=== PATIENT | female | born 1995 | race Two or more races ===

== ENCOUNTER 2017-01-02 20:41 | Emergency (ER) | payer OTHER ==
[~2017-01-02] VITALS: Ht 152.4 cm; Wt 83.1 kg
[2017-01-02 21:06] VITALS: BP 125/73
[2017-01-02] MEDS ORDERED: KETOROLAC 30 MG/ML VIAL. IV ONE (22:00)
[2017-01-02] MEDS ORDERED: ONDANSETRON PF 4 MG/2 ML VIAL. IV ONE (22:00)
[2017-01-02 22:25] LABS: BILIRUBIN,URINE NEG (NEG); CLARITY,URINE CLEAR; COLOR,URINE STRAW; GLUCOSE,URINE NEG (NEG)
[2017-01-02 22:26] LABS: BACTERIA,URINE 0 /HPF (0-FEW); NITRITE,URINE NEG (NEG); RBC,URINE 0 /HPF (0-2); SQUAMOUS EPITHELIAL CELL,UR MANY /LPF; UROBILINOGEN,URINE 0.2 mg/dL (0.2 mg/dL)
[2017-01-02 22:39] LABS: BASO % 0 % (0-3); EOS # 0.2 x10^3/uL (0.0-0.7); EOS % 3 % (0-3); HEMATOCRIT 43.5 % (36.0-47.0); HEMOGLOBIN 14.3 g/dL (12.0-15.5); LYMPH # 2.4 x10^3/uL (1.0-4.8); LYMPH % 29 % (24-48); MEAN CORPUSCULAR HEMOGLOBIN 27 pg (25-35); MEAN CORPUSCULAR HGB CONC 33 g/dL (31-37); MEAN CORPUSCULAR VOLUME 83 fL (79-100); MONO # 0.6 x10^3/uL (0.0-1.1); MONO % 7 % (0-9); NEUT # 5.2 x10^3uL (1.8-7.7); NEUT % 62 % (31-73); PLATELET COUNT 321 x10^3/uL (140-400); RED BLOOD COUNT 5.22 x10^6/uL (3.50-5.40); RED CELL DISTRIBUTION WIDTH 15.9 % (11.5-14.5); WHITE BLOOD COUNT 8.5 x10^3/uL (4.0-11.0)
[2017-01-02 22:54] LABS: ALBUMIN 3.8 g/dL (3.4-5.0); ALBUMIN/GLOBULIN RATIO 0.9 (1.0-1.7); CALCIUM 9.4 mg/dL (8.5-10.1); CREATININE 0.7 mg/dL (0.6-1.0); GFR 103.7; TOTAL BILIRUBIN 0.1 mg/dL (0.2-1.0); TOTAL PROTEIN 7.9 g/dL (6.4-8.2)
[2017-01-02 22:55] LABS: POTASSIUM 3.5 mmol/L (3.5-5.1)
[2017-01-02] MEDS ORDERED: IV NORMAL SALINE 1,000ML 1,000 ML IV ONE (23:30)
--- NOTE | 2017-01-03 00:21 | PHYS DOC ---
General Chief Complaint: NAUSEA/VOMITING/DIARRHEA Stated Complaint: ABDOMINAL PAIN N/V Time Seen by MD: 21:32 Source: patient Problems: History of Present Illness Initial Comments Patient here for nausea vomiting or diarrhea. Patient says as stated earlier today. She says she's been unable to tolerate any by mouth food or fluids today , even ice chips. She can't tell me how many times she's vomited other than "a lot." She also has diarrhea every time she vomits. There's been no blood or bilious material noted in the vomit or stool. She self Devries had no distinct fever or chills. There is no runny nose or sore throat. She's had some shortness of breath, which she attributes to her chronic asthma and which she says might of been worse with the change in weather today and going up and down stairs at work. She is not acutely short of breath at this time. She has no chest pain. She also says she has some crampy abdominal discomfort which is worse with vomiting and diarrhea and better after. There is no vaginal bleeding. She says her last period was October. She has control device and denies chance of . She has chronic vaginal discharge. There is no dysuria. She denies any focal extremity or neurologic complaints. Other than present for care tonight has been nothing done for this at home and no fractures noted increase or decrease her symptoms. There's no known sick contacts and no bad or spoiled food at home. Patient's past [place] is remarkable for asthma as well as anxiety and depression. She is on medications for this. She is a nonsmoker and occasional social user of ethanol. Allergies: Coded Allergies: Cinnamon (Verified Allergy, Severe, tongue swells, 10/29/13) Past Medical History Medical History: asthma Psychosocial History: anxiety, depression Social History Smoker: non-smoker Alcohol: occasionally Review of Systems All Other Systems: Reviewed and Negative Physical Exam General Appearance: WD/WN, no apparent distress Ear, Nose, Throat: normal ENT inspection, normal pharynx Neck: full range of motion, supple, normal inspection Respiratory: lungs clear, normal breath sounds, no respiratory distress Cardiovascular: regular rate, rhythm, no edema Gastrointestinal: soft, no organomegaly, tenderness Back: no CVA tenderness, no vertebral tenderness Extremities: non-tender, normal inspection Neurologic/Psychiatric: alert, oriented x 3 Skin: normal color, warm/dry Lymphatic: no adenopathy Comments Generally this a well-developed well-nourished female in no acute distress. Vitals are as noted. Pertinent findings on physical exam shows ears and throat to be clear. Chest is clear and cardiovascular exams unremarkable. The abdomen is soft. She diffusely mildly tender without masses, organomegaly, peritoneal findings, or focal findings. Back shows no CVA tenderness. Extremities show no rashes, cyanosis, or edema. Neurologic exam shows her to be awake alert oriented and cooperative with somewhat of a flat affect. Remainder of physical exam is clinically unremarkable. Orders, Labs, Meds Old charts note prior ER evaluations for abdominal pain of as well as for medical screening exam. Labs today are clinically unremarkable. Abdominal series films show no evidence of ileus or obstruction per the emergency physician. 0015 Patient resting comfortably in the ER. Following fluids and meds she says her nausea is gone. She's been able tolerate by mouth fluids, and she is drinking some additional Sprite now. She did say she had one episode of diarrhea after initial evaluation, but none since. She says her abdominal pain is still present but improved as well. She looks well and is no acute discomfort distress. I discussed with her the most likely diagnosis of her nausea vomiting diarrhea is probably related to either a viral illness or possible food intolerance. In any event, she looks well, she doesn't appear to be grossly dehydrated, her labs are normal, and she is able tolerate by mouth fluids, and I think she'll be able to handle this at home. We discussed home care including rest, increasing fluids with clear liquids, use of Advil or Tylenol as needed home for any fever or pain. I'm going to write prescriptions for her for Bentyl and Zofran for home. Also given her a work excuse for today and tomorrow if she is not feeling better. We did discuss the self-limited nature of these illnesses. She does voiced understanding need to follow up with primary care or return to the ER sooner as needed if worsening anyway. She looks well, no acute discomfort distress, able tolerate by mouth fluids, and okay for discharge home at this time. CHRISTEN RAMIREZ MD Jan 02, 2017 21:36
--- NOTE | 2017-01-03 08:09 | RAD ---
Abdomen, 2 views, 01/02/2017: History: Nausea, vomiting, abdominal pain An IUD is projected over the pelvis near the midline. Gas is present in large and small bowel without significant bowel distention. No free air is seen in the abdomen. A tiny lower pelvic calcifications on the left is probably a phlebolith. There is no evidence of organomegaly. The lung bases are clear. IMPRESSION: 1. An IUD is in place. 2. No acute abdominal abnormality is detected.
== END 2017-01-03 00:33 | disposition home or self-care (01) ==
LOC: ER 20:47
DX: R19.7 Diarrhea, unspecified (principal); R11.2 Nausea with vomiting, unspecified; R10.9 Unspecified abdominal pain; N89.8 Other specified noninflammatory disorders of vagina; J45.909 Unspecified asthma, uncomplicated; F41.9 Anxiety disorder, unspecified; F32.9 Major depressive disorder, single episode, unspecified; Z88.8 Allergy status to other drugs, medicaments and biological substances
CPT/HCPCS: 36415; 74020; 80053; 81001; 81025; 82150; 83690; 85027; 96361; 96374; 96375; 99285; J1885; J2405; J7030

== ENCOUNTER 2017-03-25 17:19 | Emergency (ER) | payer OTHER ==
[~2017-03-25] VITALS: Ht 152.4 cm; Wt 83.1 kg
[2017-03-25] MEDS ORDERED: IV NORMAL SALINE 1,000ML 1,000 ML IV SCH (18:15)
[2017-03-25] MEDS ORDERED: ONDANSETRON PF 4 MG/2 ML VIAL. IV ONE ×2 (18:30→20:15)
[2017-03-25 18:31] LABS: BASO # 0.1 x10^3/uL (0.0-0.2); BASO % 1 % (0-3); EOS # 0.6 x10^3/uL (0.0-0.7); EOS % 7 % (0-3); HEMATOCRIT 44.7 % (36.0-47.0); HEMOGLOBIN 15.2 g/dL (12.0-15.5); LYMPH % 23 % (24-48); MEAN CORPUSCULAR HEMOGLOBIN 29 pg (25-35); MEAN CORPUSCULAR HGB CONC 34 g/dL (31-37); MEAN CORPUSCULAR VOLUME 85 fL (79-100); MONO # 0.5 x10^3/uL (0.0-1.1); MONO % 5 % (0-9); NEUT # 5.7 x10^3uL (1.8-7.7); NEUT % 65 % (31-73); PLATELET COUNT 254 x10^3/uL (140-400); RED BLOOD COUNT 5.24 x10^6/uL (3.50-5.40); RED CELL DISTRIBUTION WIDTH 15.3 % (11.5-14.5); WHITE BLOOD COUNT 8.9 x10^3/uL (4.0-11.0)
[2017-03-25 18:39] LABS: BILIRUBIN,URINE NEG (NEG); CLARITY,URINE CLEAR; COLOR,URINE YELLOW; GLUCOSE,URINE NEG (NEG); NITRITE,URINE NEG (NEG); RBC,URINE 0 /HPF (0-2); UROBILINOGEN,URINE 0.2 mg/dL (0.2 mg/dL); WBC,URINE OCC /HPF (0-4)
[2017-03-25 18:40] LABS: AMORPHOUS SEDIMENT,UR PRESENT /HPF; BACTERIA,URINE 0 /HPF (0-FEW); SQUAMOUS EPITHELIAL CELL,UR OCC /LPF
[2017-03-25 18:44] LABS: DIRECT BILIRUBIN 0.1 mg/dL (0.0-0.2); TOTAL BILIRUBIN 0.2 mg/dL (0.2-1.0); TOTAL PROTEIN 7.3 g/dL (6.4-8.2)
--- NOTE | 2017-03-25 18:44 | PHYS DOC ---
Past History Past Medical History: Anxiety, Asthma, Depression Past Surgical History: Smoking: Non-smoker Alcohol Use: Occasionally Drug Use: None Adult General Chief Complaint Chief Complaint: ABDOMINAL PAIN HPI HPI Patient is a 21 year old female who presents with complaint of right lower quadrant abdominal pain. Patient states that her pain started approximately 3 hours or to arrival. Patient states that the pain is severe, sharp, and cramping. Patient states that it is currently 10 out of 10. Patient states that the pain worsens with laughing and with walking. Patient has had history of 2 C- sections but no other abdominal surgeries. Patient has not had any associated fever, nausea, vomiting, or diarrhea. Patient is currently on her menstrual period. Patient has not taken any medications to help with her symptoms at this time. Review of Systems Review of Systems Constitutional: Denies fever or chills [] Eyes: Denies change in visual acuity, redness, or eye pain [] HENT: Denies nasal congestion or sore throat [] Respiratory: Denies cough or shortness of breath [] Cardiovascular: Denies chest pain or edema [] GI: Abdominal pain, denies nausea, vomiting, bloody stools or diarrhea [] : Denies dysuria or hematuria [] Musculoskeletal: Denies back pain or joint pain [] Integument: Denies rash or skin lesions [] Neurologic: Denies headache, focal weakness or sensory changes [] Current Medications Current Medications Current Medications Medications (Trade) Dose Ordered Sig/Abhishek Start Time Stop Time Status Last Admin Dose Admin Fentanyl Citrate (Fentanyl 2ml Vial) 50 mcg PRN Q15MIN PRN 03/25/17 18:15 03/26/17 18:14 Ondansetron HCl (Zofran) 4 mg 1X ONCE 03/25/17 18:30 03/25/17 18:31 DC Sodium Chloride 1,000 ml @ 1,000 mls/hr Q1H 03/25/17 18:15 03/25/17 19:14 Allergies Allergies Allergies Coded Allergies Type Severity Reaction Last Updated Verified Cinnamon Allergy Severe tongue swells 10/29/13 Yes Physical Exam Physical Exam Constitutional: Alert, afebrile, appears in minimal discomfort. [] HENT: Normocephalic, atraumatic, bilateral external ears normal, oropharynx moist, no oral exudates, nose normal. [] Eyes: PERRLA, EOMI, conjunctiva normal, no discharge. [] Neck: Normal range of motion, no tenderness, supple, no stridor. [] Cardiovascular:Heart rate regular rhythm, no murmur [] Lungs & Thorax: Bilateral breath sounds clear to auscultation [] Abdomen: Bowel sounds normal, soft, right lower quadrant tenderness to palpation with guarding, no rebound tenderness, no masses, no pulsatile masses. [] Skin: Warm, dry, no erythema, no rash. [] Back: No tenderness, no CVA tenderness. [] Extremities: No tenderness, no cyanosis, no clubbing, ROM intact, no edema. [] Neurologic: Alert and oriented X 3, normal motor function, normal sensory function, no focal deficits noted. [] Current Patient Data Vital Signs Vital Signs Date Time Temp Pulse Resp B/P (MAP) Pulse Ox O2 Delivery O2 Flow Rate FiO2 03/25/17 17:25 98.1 74 18 98 Room Air Lab Results Laboratory Tests Test 03/25/17 17:45 03/25/17 17:55 03/25/17 18:20 Urine Collection Type Unknown Urine Color Yellow Urine Clarity Clear Urine pH 6.0 Urine Specific [place] 1.020 Urine Protein Neg (NEG-TRACE) Urine Glucose (UA) Neg mg/dL (NEG) Urine Ketones (Stick) Neg mg/dL (NEG) Urine Blood Neg (NEG) Urine Nitrite Neg (NEG) Urine Bilirubin Neg (NEG) Urine Urobilinogen Dipstick 0.2 mg/dL (0.2 mg/dL) Urine Leukocyte Esterase Neg (NEG) Urine RBC 0 /HPF (0-2) Urine WBC Occ /HPF (0-4) Urine Squamous Epithelial Cells Occ /LPF Urine Amorphous Sediment Present /HPF Urine Bacteria 0 /HPF (0-FEW) Urine Mucus Slight /LPF POC Urine HCG, Qualitative hcg negative (Negative) White Blood Count 8.9 x10^3/uL (4.0-11.0) Red Blood Count 5.24 x10^6/uL (3.50-5.40) Hemoglobin 15.2 g/dL (12.0-15.5) Hematocrit 44.7 % (36.0-47.0) Mean Corpuscular Volume 85 fL (79-100) Mean Corpuscular Hemoglobin 29 pg (25-35) Mean Corpuscular Hemoglobin Concent 34 g/dL (31-37) Red Cell Distribution Width 15.3 % (11.5-14.5) H Platelet Count 254 x10^3/uL (140-400) Neutrophils (%) (Auto) 65 % (31-73) Lymphocytes (%) (Auto) 23 % (24-48) L Monocytes (%) (Auto) 5 % (0-9) Eosinophils (%) (Auto) 7 % (0-3) H Basophils (%) (Auto) 1 % (0-3) Neutrophils # (Auto) 5.7 x10^3uL (1.8-7.7) Lymphocytes # (Auto) 2.0 x10^3/uL (1.0-4.8) Monocytes # (Auto) 0.5 x10^3/uL (0.0-1.1) Eosinophils # (Auto) 0.6 x10^3/uL (0.0-0.7) Basophils # (Auto) 0.1 x10^3/uL (0.0-0.2) EKG EKG Not performed [] Radiology/Procedures Radiology/[place] [address] IMAGING REPORT Signed PATIENT: KAMINI ROJAS ACCOUNT: [id number] : 1995 LOCATION: ER AGE: 21 SEX: F EXAM STATUS: REG ER ORD. PHYSICIAN: SHYANNE PAGE MD REASON: Severe right lower quadrant pain today PROCEDURE: CT ABD PELV W/ IV CONTRST ONLY CT Abdomen and Pelvis With Intravenous Contrast: History: Severe right lower quadrant abdominal pain beginning today. Comparison: None. Technique: After administration of intravenous contrast, 75 mL of Omnipaque 300, CT of the abdomen and pelvis was performed. Exposure: One or more of the following individualized dose reduction techniques were utilized for this examination: 1. Automated exposure control 2. Adjustment of the mA and/or kV according to patient size 3. Use of iterative reconstruction technique Findings: Evaluation of enteric structures may be limited by lack of oral contrast. Liver, spleen, pancreas, and bilateral adrenal glands are unremarkable. Cholelithiasis is seen. Bilateral kidneys enhance symmetrically. No bowel obstruction or inflammation is identified. Appendix is without evidence of inflammation. Intrauterine device is present. Uterus and adnexa have otherwise unremarkable CT appearance. Urinary bladder is unremarkable. No free air or free fluid is seen in the abdomen or pelvis. Vaginal tampon is seen. Impression: 1. No acute abnormality identified in the abdomen or pelvis. 2. Cholelithiasis without evidence of cholecystitis. Electronically signed by: Jaime Keenan MD (03/25/2017 7:52 PM) DICTATED AND SIGNED BY: JAIME KEENAN MD DATE: 03/25/171945 CC: SHYANNE PAGE MD; PCP,NO ~ [] Course & Med Decision Making Course & Med Decision Making Pertinent Labs and Imaging studies reviewed. (See chart for details) Patient received IV fluids, fentanyl, and Zofran. On reevaluation, patient states her symptoms have improved. Patient's CT was negative for acute appendicitis and does not reveal any acute surgical pathology at this time. After speaking with the patient, she would like to go home. The patient will be given [place], Zofran, and advised to continue with oral hydration. Advised to return to the emergency department in the next 12-24 hours of symptoms are not improving. Patient voiced understanding and in agreement with treatment plan. Dragon Disclaimer Dragon Disclaimer This chart was dictated in whole or in part using Voice Recognition software in a busy, high-work load, and often noisy Emergency Department environment. It may contain unintended and wholly unrecognized errors or omissions. Departure Departure: Impression: Primary Impression: Abdominal pain Disposition: 01 HOME, SELF-CARE Condition: IMPROVED Referrals: PCP,NO (PCP) Patient Instructions: Abdominal Pain (Nonspecific) Additional Instructions: Your CT scan did not show evidence of appendicitis today. It is important however that you continue to monitor your symptoms and return to the emergency department in the next 12-24 hours if symptoms are not improving with medications. Scripts Ondansetron (ZOFRAN ODT) 4 Mg Tab.rapdis 1 TAB SL Q8HRS Y for NAUSEA/VOMITING, #15 TAB Prov: SHYANNE PAGE MD 03/25/17 Hydrocodone Bit/Acetaminophen (NORCO 5-325 TABLET) 1 Each Tablet 1-2 TAB PO Q4-6HRS Y for PAIN, #20 TAB Prov: SHYANNE PAGE MD 03/25/17 Problem Qualifiers Primary Impression: Abdominal pain Abdominal location: right lower quadrant Qualified Codes: R10.31 - Right lower quadrant pain SHYANNE PAGE MD Mar 25, 2017 18:44
[2017-03-25 18:46] LABS: HEMOGLOBIN ISTAT 15.6 gm/dL; POTASSIUM ISTAT 3.4 mmol/L (3.5-5.0)
[2017-03-25] MEDS: fentaNYL PF 100 MCG/2 ML VIAL IV PRN ×2 (18:47→19:35)
[2017-03-25] MEDS ORDERED: CONTRAST GIVEN MC PRN (19:30)
[2017-03-25] MEDS ORDERED: IOHEXOL 300 MG/ML 75 ML VIAL. IV ONE (19:30)
--- NOTE | 2017-03-25 19:55 | RAD ---
CT Abdomen and Pelvis With Intravenous Contrast: History: Severe right lower quadrant abdominal pain beginning today. Comparison: None. Technique: After administration of intravenous contrast, 75 mL of Omnipaque 300, CT of the abdomen and pelvis was performed. Exposure: One or more of the following individualized dose reduction techniques were utilized for this examination: 1. Automated exposure control 2. Adjustment of the mA and/or kV according to patient size 3. Use of iterative reconstruction technique Findings: Evaluation of enteric structures may be limited by lack of oral contrast. Liver, spleen, pancreas, and bilateral adrenal glands are unremarkable. Cholelithiasis is seen. Bilateral kidneys enhance symmetrically. No bowel obstruction or inflammation is identified. Appendix is without evidence of inflammation. Intrauterine device is present. Uterus and adnexa have otherwise unremarkable CT appearance. Urinary bladder is unremarkable. No free air or free fluid is seen in the abdomen or pelvis. Vaginal tampon is seen. Impression: 1. No acute abnormality identified in the abdomen or pelvis. 2. Cholelithiasis without evidence of cholecystitis. Electronically signed by: Jaime Keenan MD (03/25/2017 7:52 PM)
[2017-03-25 20:15] VITALS: BP 120/60
[2017-03-25] MEDS ORDERED: ONDA4TAB10 SL (20:17)
[2017-03-25] MEDS ORDERED: HYDR-971 PO (20:17)
== END 2017-03-25 20:20 | disposition home or self-care (01) ==
LOC: ER 17:19
DX: R10.31 Right lower quadrant pain (principal); J45.909 Unspecified asthma, uncomplicated; Z91.018 Allergy to other foods
CPT/HCPCS: 36415; 74177; 80047; 80076; 81001; 81025; 83690; 85027; 96361; 96374; 96375; 96376; 99285; J2405; J3010; Q9967; J7030

== ENCOUNTER 2017-05-13 23:04 | Emergency (ER) | payer OTHER ==
[~2017-05-13] VITALS: Ht 152.4 cm; Wt 83.1 kg
[2017-05-13 23:04] VITALS: BP 138/86
[~2017-05-13 23:04] MED LIST: HYDR-971 PO; ONDA4TAB10 SL
[2017-05-14] MEDS ORDERED: IPRATRPIUM/ALBUTEROL 0.5/2.5MG 3 ML NEBU. NEB ONE
[2017-05-14] MEDS ORDERED: methylPREDNISolone SOD SUCC PF 125 MG/2 ML VIAL. IV ONE
[2017-05-14] MEDS ORDERED: ONDANSETRON ODT 4 MG TAB.RAPDIS PO ONE
[2017-05-14] MEDS ORDERED: PRED20TA PO (01:00)
[2017-05-14] MEDS ORDERED: ONDA4TAB10 PO (01:00)
[2017-05-14] MEDS ORDERED: IPRA3AMP NEB (01:00)
--- NOTE | 2017-05-14 01:05 | PHYS DOC ---
General Chief Complaint: NAUSEA/VOMITING/DIARRHEA Stated Complaint: VOMITING,DIZZY,COUGH Time Seen by MD: 23:16 Source: patient Exam Limitations: no limitations Problems: History of Present Illness Initial Comments Patient is a 21-year-old female who comes to the ED complaining of asthma and abdominal symptoms. Asthma: Patient states she has history of asthma, she has a nebulizer machine at home which she has not been. She's been using her albuterol inhaler as needed. The last few days she's had worsening of her cough especially at night. Earlier today she had posttussive emesis 1. She is wheezing but denies any shortness of breath no fever chills sweats or body aches and her cough is nonproductive. Despite her asthma issues she continues to smoke cigarettes daily. Vomiting and diarrhea: Patient states that she's had some nausea but no emesis other than previously mentioned posttussive emesis. She says she had one very large loose watery stool prior to coming into the emergency department. She stopped by the hospital on her way to work she is wearing her [employer] uniform. She denies any travel or bad food exposure there was no blood in her stool or emesis. She denies any focal abdominal pain complaints. Timing/Duration: 24 hours Severity: moderate Modifying Factors: worse with eating, worse with movement, improves with rest Associated Symptoms: cough, nausea/vomiting, other Allergies: Coded Allergies: Cinnamon (Verified Allergy, Severe, tongue swells, 10/29/13) Past Medical History Medical History: asthma Surgical History: other ( section 2) Social History Smoker: cigarettes Alcohol: none Drugs: none Review of Systems Constitutional: denies chills, denies diaphoresis, denies fever, malaise EENTM: denies eye pain, denies blurred vision, denies ear pain, denies ear discharge, nose congestion, denies throat pain, denies throat swelling Respiratory: cough, denies shortness of breath, wheezing Cardiovascular: denies chest pain, denies palpitations, denies syncope Gastrointestinal: denies abdominal pain, denies constipation, denies diarrhea, nausea, vomiting Genitourinary: denies dysuria, denies frequency, denies hematuria Musculoskeletal: denies back pain, denies joint swelling, denies neck pain Psychiatric/Neurological: denies headache, denies numbness, denies paresthesia Hematologic/Lymphatic: denies blood clots, denies easy bleeding, denies easy bruising Physical Exam General Appearance: no apparent distress, obese Eyes: bilateral eye normal inspection, bilateral eye PERRL, bilateral eye EOMI Ear, Nose, Throat: hearing grossly normal, normal ENT inspection, normal pharynx Neck: non-tender, supple Respiratory: other (mild wheezes bilaterally with good air movement, chest is nontender no respiratory distress) Cardiovascular: normal peripheral pulses, regular rate, rhythm Gastrointestinal: soft (nondistended, nontender, bowel sounds normal no masses) Back: no CVA tenderness, no vertebral tenderness Extremities: non-tender, normal inspection Neurologic/Psychiatric: machine driller II-XII nml as tested, no motor/sensory deficits, alert, normal mood/affect, oriented x 3 Skin: normal color, warm/dry Orders, Labs, Meds Patient rechecked after Solu-Medrol and DuoNeb. Lungs are now clear the patient states she is feeling much better. I discussed the treatment plan as well as time off from work. Patient works at [employer] in [employer] and should avoid handling others food until her gastroenteritis symptoms have resolved. See departure instructions. She was advised to stop smoking. Departure Time of Disposition: : Disposition: HOME, SELF-CARE Diagnosis: gastroenteritis, asthma exacerbation Condition: GOOD Patient Instructions: Asthma, Adult, [id number], Viral Gastroenteritis, Easy- to-Read Additional Instructions: Off work through Tuesday note given. Aggressive hydration with Gatorade or water. Avoid environmental allergens and extremes of temperature. Continue to use your inhaler as needed primarily when you are away from home. Use the prescribed DuoNeb vials every 6 hours [id number]. Use your albuterol neb vials every 2 hours as needed. Prescription: Zofran ODT, prednisone Follow-up with your doctor in 5-7 days for recheck. Return to ED with new or changing symptoms. LEXIE GALVAN DO May 14, 2017 01:05
== END 2017-05-14 01:28 | disposition home or self-care (01) ==
LOC: ER 23:04
DX: J45.901 Unspecified asthma with (acute) exacerbation (principal); K52.9 Noninfective gastroenteritis and colitis, unspecified; F17.210 Nicotine dependence, cigarettes, uncomplicated; Z91.018 Allergy to other foods
CPT/HCPCS: 94640; 96374; 99284; J2930; J7620; Q0162

== ENCOUNTER 2019-01-05 07:06 | Emergency (ER) | payer OTHER ==
[~2019-01-05] VITALS: Ht 154.9 cm; Wt 79.4 kg
[~2019-01-05 07:06] MED LIST changes: +HYDR-3165 PO; -HYDR-971 PO; +IPRA3AMP29 NEB; +ONDA4TAB10 PO; +PRED20TA PO
[2019-01-05] MEDS ORDERED: IV NORMAL SALINE 1,000ML 1,000 ML IV ONE (07:15)
--- NOTE | 2019-01-05 07:21 | PHYS DOC ---
Past History Past Medical History: Asthma Past Surgical History: Smoking: Non-smoker Alcohol Use: None Drug Use: None Adult General Chief Complaint Chief Complaint: MULTIPLE COMPLAINTS HPI HPI 23-year-old female presents with 3 day history of nonproductive cough and generalized fatigue. She also stopped smoking 3 days ago and his finger her cough was from that. Today the patient has had nausea and an episode of vomiting while she was at work. She feels like she is getting worse so she decided to come get checked out. He is unsure if she's had a fever. She denies diarrhea. She has had contact with a person with influenza recently. Review of Systems Review of Systems Constitutional: Denies fever or chills [] Eyes: Denies change in visual acuity, redness, or eye pain [] HENT: Denies nasal congestion or sore throat [] Respiratory: Cough without shortness of breath [] Cardiovascular: No additional information not addressed in HPI [] GI: Nausea, vomiting. Denies bloody stools or diarrhea [] : Denies dysuria or hematuria [] Musculoskeletal: Body aches[] Integument: Denies rash or skin lesions [] Neurologic: Denies headache, focal weakness or sensory changes [] Endocrine: Denies polyuria or polydipsia [] All other systems were reviewed and found to be within normal limits, except as documented in this note. Current Medications Current Medications Current Medications Medications (Trade) Dose Ordered Sig/Abhishek Start Time Stop Time Status Last Admin Dose Admin Ondansetron HCl (Zofran) 4 mg 1X ONCE 01/05/19 07:30 01/05/19 07:31 Sodium Chloride 1,000 ml @ 1,000 mls/hr 1X ONCE 01/05/19 07:15 01/05/19 08:14 Allergies Allergies Allergies Coded Allergies Type Severity Reaction Last Updated Verified Cinnamon Allergy Severe tongue swells 10/29/13 Yes Physical Exam Physical Exam Constitutional: Well developed, well nourished, no acute distress, non-toxic appearance. [] HENT: Normocephalic, atraumatic, bilateral external ears normal, oropharynx moist, no oral exudates, nose normal. [] Eyes: PERRLA, EOMI, conjunctiva normal, no discharge. [] Neck: Normal range of motion, no tenderness, supple, no stridor. [] Cardiovascular:Heart rate regular rhythm, no murmur [] Lungs & Thorax: Bilateral breath sounds clear to auscultation [] Abdomen: Bowel sounds normal, soft, no tenderness, no masses, no pulsatile masses. [] Skin: Warm, dry, no erythema, no rash. [] Back: No tenderness, no CVA tenderness. [] Extremities: No tenderness, no cyanosis, no clubbing, ROM intact, no edema. [] Neurologic: Alert and oriented X 3, normal motor function, normal sensory function, no focal deficits noted. [] Psychologic: Affect normal, judgement normal, mood normal. [] EKG EKG [] Radiology/Procedures Radiology/Procedures [] Course & Med Decision Making Course & Med Decision Making Pertinent Labs and Imaging studies reviewed. (See chart for details) The patient's labs are unremarkable. Her influenza is negative. We have given her 1 L normal saline and 4 mg of Zofran IV. She's had no further vomiting. I will discharge her with a prescription for Zofran and Tessalon Perles. I believe she is suffering from viral illness. I have advised supportive care. She is stable for discharge at this time. [] Dragon Disclaimer Dragon Disclaimer This electronic medical record was generated, in whole or in part, using a voice recognition dictation system. Departure Departure: Impression: Primary Impression: Viral syndrome Additional Impression: Vomiting Disposition: 01 HOME, SELF-CARE Condition: STABLE Referrals: PCP,NO (PCP) Patient Instructions: Nausea and Vomiting, [id number], Upper Respiratory Infection, Adult, [id number] Scripts Benzonatate (TESSALON PERLE) 100 Mg Capsule 1 CAP PO TID PRN for COUGH, #30 CAP Prov: MACIEJ ASHTON DO 01/05/19 Ondansetron (ONDANSETRON ODT) 4 Mg Tab.rapdis 1 TAB PO PRN Q6-8HRS PRN for VOMITING, #16 TAB Prov: MACIEJ ASHTON DO 01/05/19 Problem Qualifiers Additional Impression: Vomiting Vomiting type: unspecified Vomiting Intractability: non-intractable Nausea presence: with nausea Qualified Codes: R11.2 - Nausea with vomiting, unspecified MACIEJ ASHTON DO Jan 05, 2019 07:20
[2019-01-05] MEDS ORDERED: ONDA4TAB12 PO (07:29)
[2019-01-05] MEDS ORDERED: ONDANSETRON PF 4 MG/2 ML VIAL. IV ONE (07:30)
[2019-01-05 07:53] LABS: BASO % 1 % (0-3); EOS # 0.3 x10^3/uL (0.0-0.7); EOS % 5 % (0-3); HEMATOCRIT 43.6 % (36.0-47.0); HEMOGLOBIN 15.3 g/dL (12.0-15.5); LYMPH # 1.7 x10^3/uL (1.0-4.8); LYMPH % 33 % (24-48); MEAN CORPUSCULAR HEMOGLOBIN 33 pg (25-35); MEAN CORPUSCULAR HGB CONC 35 g/dL (31-37); MEAN CORPUSCULAR VOLUME 93 fL (79-100); MONO # 0.4 x10^3/uL (0.0-1.1); MONO % 7 % (0-9); NEUT # 2.9 x10^3uL (1.8-7.7); NEUT % 54 % (31-73); PLATELET COUNT 220 x10^3/uL (140-400); RED BLOOD COUNT 4.68 x10^6/uL (3.50-5.40); RED CELL DISTRIBUTION WIDTH 11.9 % (11.5-14.5); WHITE BLOOD COUNT 5.3 x10^3/uL (4.0-11.0)
[2019-01-05 08:05] LABS: ALBUMIN 3.5 g/dL (3.4-5.0); ALBUMIN/GLOBULIN RATIO 1.1 (1.0-1.7); CALCIUM 9.2 mg/dL (8.5-10.1); CREATININE 0.7 mg/dL (0.6-1.0); TOTAL BILIRUBIN 0.5 mg/dL (0.2-1.0); TOTAL PROTEIN 6.7 g/dL (6.4-8.2)
[2019-01-05 08:06] LABS: POTASSIUM 4.6 mmol/L (3.5-5.1)
[2019-01-05 08:09] LABS: INFLUENZA A PATIENT NEGATIVE (NEGATIVE); INFLUENZA B PATIENT NEGATIVE (NEGATIVE)
[2019-01-05] MEDS ORDERED: BENZ100C PO (08:12)
[2019-01-05] MEDS ORDERED: BENZONATATE 100 MG CAPSULE. PO ONE (08:45)
[2019-01-05 08:55] VITALS: BP 118/70
== END 2019-01-05 08:30 | disposition home or self-care (01) ==
LOC: ER 07:06
DX: B34.9 Viral infection, unspecified (principal); R11.2 Nausea with vomiting, unspecified; J45.909 Unspecified asthma, uncomplicated; Z91.018 Allergy to other foods
CPT/HCPCS: 36415; 80053; 85025; 87804; 96361; 96374; 99283; J2405; J7030

== ENCOUNTER 2020-10-08 00:38 | Emergency (ER) | payer SELFPAY ==
[~2020-10-08] VITALS: Ht 154.9 cm; Wt 68.3 kg
[2020-10-08 00:38] VITALS: BP 138/83
[~2020-10-08 00:38] MED LIST changes: +BENZ100C PO; +ONDA4TAB12 PO
--- NOTE | 2020-10-08 01:18 | RAD ---
XR FOOT_RIGHT 3 VIEWS 10/08/2020 12:54 AM INDICATION: Injury. Severe pain. COMPARISON: None available. TECHNIQUE: 3 views of the right foot are provided. FINDINGS/ IMPRESSION: There is no acute fracture or dislocation. Joint spaces are maintained. Bone mineralization is within normal limits. Regional soft tissues are within normal limits. There is no soft tissue gas or osseou s erosion. No radiopaque foreign body. Electronically signed by: Alejandrina Ravi MD (10/08/2020 1:15 AM) CAS
--- NOTE | 2020-10-08 01:21 | PHYS DOC ---
Past History Past Medical History: Asthma, Migraines Past Surgical History: Cholecystectomy, Smoking: Non-smoker Alcohol Use: Occasionally Drug Use: None Adult General Chief Complaint Chief Complaint: FOOT INJURY PAIN HPI HPI Patient is a 25-year-old female who presents via POV for right foot pain. Patient reports dropping a cannonball approximately the size of a softball onto ventral portion of right foot. Point of maximum impact was her right big toe. She reports focal pain without radiation and subsequently transported to our facility for evaluation. She still has good sensation in her lower extremity, no gross bony abnormalities or palpable findings of concern, no motor or sensory loss past baseline. She is not on any blood thinners, no prior foot surgeries Review of Systems Review of Systems Fourteen body systems of review of systems have been reviewed. See HPI for pertinent positives and negative responses, other amador all other systems are negative, non-pertinent or non-contributory Allergies Allergies Allergies Coded Allergies Type Severity Reaction Last Updated Verified cinnamon Allergy Severe tongue swells 10/29/13 Yes Physical Exam Physical Exam Constitutional: Well developed, well nourished, no acute distress, non-toxic appearance. HENT: Normocephalic, atraumatic, bilateral external ears normal, oropharynx moist, no oral exudates, nose normal. Eyes: PERRLA, EOMI, conjunctiva normal, no discharge. Neck: Normal range of motion, no tenderness, supple, no stridor. Cardiovascular: Heart rate regular per monitor Lungs & Thorax: No respiratory distress or accessory muscle use, bilateral chest rise Abdomen: Abdomen soft, non-tender, bowel sounds present in all quadrants, no guarding or rebound, nonacute abdomen. Skin: Warm, dry, no erythema, no rash. Back: No tenderness, no CVA tenderness. Extremities: No cyanosis, no clubbing, ROM intact, no edema. Able to wiggle all toes on left foot. Negative [place] ankle rule. Patient has navicular bone tenderness of right foot and tenderness over entire right big toe without any palpable abnormalities, lower extremity pulses intact and equal bilaterally Neurologic: Alert and oriented X 3, lower extremities normal motor & sensory function bilaterally, no focal deficits noted. Psychologic: Affect normal, judgement normal, anxious mood EKG EKG [] Radiology/Procedures Radiology/Procedures XR FOOT_RIGHT 3 VIEWS 10/08/2020 12:54 AM INDICATION: Injury. Severe pain. COMPARISON: None available. TECHNIQUE: 3 views of the right foot are provided. FINDINGS/ IMPRESSION: There is no acute fracture or dislocation. Joint spaces are maintained. Bone mineralization is within normal limits. Regional soft tissues are within normal limits. There is no soft tissue gas or osseous erosion. No radiopaque foreign body. Electronically signed by: Alejandrina Ravi MD (10/08/2020 1:15 AM) [facility] Heart Score Risk Factors: Risk Factors: DM, Current or recent (<one month) smoker, HTN, HLP, family history of CAD, obesity. Risk Scores: Risk Factors: DM, Current or recent (<one month) smoker, HTN, HLP, family history of CAD, obesity. Course & Med Decision Making Course & Med Decision Making Discussed with the patient all findings and diagnostic testing. I discussed most likely diagnosis of right foot contusion. I discussed role and need for o ngoing supportive care utilizing NSAIDs and/or Tylenol for pain control and ice. I stressed need for close outpatient follow-up to review today's ER visit. Strict return precautions were also discussed at length with good understanding by patient. Patient voiced understanding and agreement with the plan. Patient knows to come back for repeat evaluation if concerning signs or symptoms present prior to outpatient follow-up. Hemodynamically stable, ambulatory and well- appearing at time of disposition. Dragon Disclaimer Dragon Disclaimer This electronic medical record was generated, in whole or in part, using a voice recognition dictation system. Departure Departure: Impression: Primary Impression: Contusion of right foot Disposition: 01 DC HOME SELF CARE/HOMELESS Condition: STABLE Referrals: PCP,NO (PCP) Patient Instructions: Contusion, RICE - Routine Care for Injuries Additional Instructions: It is likely that you have experienced a contusion to your right foot that is causing you pain. The best treatment for this injury is continued range of eitan on to prevent a frozen joint. A Rest, Ice, Compression, Elevation (RICE) strategy may also be helpful in the acute phase. Please continue to use NSAIDs and/or Tylenol for as needed pain. Please follow up with your primary doctor. Please return to the ED if new or worrisome symptoms arise prior to outpatient follow-up. Is a pleasure to take care of you and I wish you a speedy recovery ELADIA DONALD DO Oct 08, 2020 01:21
== END 2020-10-08 02:10 | disposition home or self-care (01) ==
LOC: ER 00:38
DX: S90.31XA Contusion of right foot, initial encounter (principal); J45.909 Unspecified asthma, uncomplicated; G43.909 Migraine, unspecified, not intractable, without status migrainosus; Z91.018 Allergy to other foods; W20.8XXA Other cause of strike by thrown, projected or falling object, initial encounter; Y93.89 Activity, other specified; Y92.89 Other specified places as the place of occurrence of the external cause; Y99.8 Other external cause status
CPT/HCPCS: 73630; 99283

== ENCOUNTER 2020-10-21 08:54 | Emergency (ER) | payer SELFPAY ==
[~2020-10-21] VITALS: Ht 162.6 cm; Wt 68.1 kg
--- NOTE | 2020-10-21 10:09 | PHYS DOC ---
Past History Past Medical History: Asthma, Depression, Migraines Past Surgical History: Cholecystectomy, Smoking: Non-smoker Alcohol Use: Occasionally Drug Use: None Social History Narrative: NONE RECENT, LAST USED 6 YEARS AGO General Adult EDM: Chief Complaint: MULTIPLE COMPLAINTS HPI: HPI: 25-year-old female past medical history consistent with asthma, migraines and depression presents the ED with complaints of " I feel like I am drowning when I'm walking," body aches and generalized fatigue. Tested negative for Covid on September 26. Has a history of chronic nausea, vomiting, diarrhea and headaches. Former marijuana use. No alcohol, IV drug use or illicit drug use. Influenza vaccine given in August 2020. Past surgical history of tubal ligation. LMP was in January 2020 after patient gave . Reports her asthma is well controlled, has not needed her inhaler. Is never been admitted for asthma, last steroid use was in 2019. Denies any associated hemoptysis, chest pain, back pain, dyspnea, increased work of breathing/tachypnea, history of anemia/blood transfusions, syncope or dizziness. Review of Systems: Review of Systems: Constitutional: Denies fever or chills Eyes: Denies change in visual acuity HENT: Denies nasal congestion or sore throat Respiratory: Denies cough or increased work of breathing Cardiovascular: Denies chest pain or edema GI: Denies abdominal pain or bloody stools : Denies dysuria or hematuria or vaginal bleeding Musculoskeletal: Denies back pain or joint pain Integument: Denies rash or diaphoresis Neurologic: Denies headache, neck stiffness, focal weakness or sensory changes Endocrine: Denies polyuria or polydipsia Lymphatic: Denies swollen glands Psychiatric: Denies depression or anxiety Allergies: Allergies: Allergies Coded Allergies Type Severity Reaction Last Updated Verified cinnamon Allergy Severe tongue swells 10/21/20 Yes Physical Exam: PE: Constitutional: Well developed, well nourished, no acute distress, non-toxic appearance. HENT: Normocephalic, atraumatic, Eyes: EOMI, conjunctiva normal, no discharge. Neck: Normal range of motion, supple, Cardiovascular: S1/2 present, regular rhythm Lungs & Thorax: Speaking in full sentences, bilateral equal chest rise, no tachypnea or increased work of breathing, not requiring any oxygen, speaks in full sentences when lying flat, Abdomen: soft, no tenderness, Skin: Warm, dry, no erythema, no rash. [] Back: No tenderness, no CVA tenderness. [] Extremities: No tenderness, no cyanosis, no edema Neurologic: Alert and oriented X 3, normal motor function, normal sensory function, no focal deficits noted. [] Psychologic: Affect normal, judgement normal, mood normal. [] Current Patient Data: Vital Signs: Vital Signs Date Time Temp Pulse Resp B/P (MAP) Pulse Ox O2 Delivery O2 Flow Rate FiO2 10/21/20 09:12 98.4 64 18 131/84 (100) 97 Room Air EKG: EKG: [] Radiology/Procedures: Radiology/Procedures: IMAGING REPORT Signed PATIENT: KAMINI ROJAS CACCOUNT: [id number] : 1995 LOCATION: ER AGE: 25 SEX: F EXAM STATUS: REG ER ORD. PHYSICIAN: TED MILLS DO REASON: cough PROCEDURE: CHEST AP ONLY XR CHEST 1V Clinical Indication: Reason: cough / Spl. Instructions: / History: Comparison: Two-view chest, August 21, 2013. Findings: The cardiomediastinal silhouette is normal. Lungs are clear. There is no pneumothorax. No pleural effusion is appreciated. No acute bone abnormality. IMPRESSION: No acute cardiopulmonary process. Electronically signed by: Zafar Wood MD (10/21/2020 10:11 AM) [id number] DICTATED AND SIGNED BY: ZAFAR WOOD MD DATE: 10/21/20 1010 CC: PCP,NO; TED MILLS DO ~MTH0 0 Heart Score: Risk Factors: Risk Factors: DM, Current or recent (<one month) smoker, HTN, HLP, family history of CAD, obesity. Risk Scores: Score 0 - 3: 2.5% MACE over next 6 weeks - Discharge Home Score 4 - 6: 20.3% MACE over next 6 weeks - Admit for Clinical Observation Score 7 - 10: 72.7% MACE over next 6 weeks - Early Invasive Strategies Course & Med Decision Making: Course & Med Decision Making Pertinent Labs and Imaging studies reviewed. (See chart for details) COVID-19 CRITERIA: The patient was evaluated during the global COVID-19 pandemic, and that diagnosis was suspected/considered upon their initial presentation. Their evaluation, treatment and testing was consistent with current guidelines for patients who present with complaints or symptoms that may be related to COVID-19. Concern for dyspnea in a well-appearing patient required no oxygen and in no respiratory distress with clear lung sounds. Suspect viral process. No active vomiting in ED. Influenza test negative. Normal chest x-ray. test negative. Covid test pending. Recommend patient follow-up with primary care ph ysician for routine lab testing to assess for thyroid studies and anemia. Patient hemodynamically stable, speaking in full sentences with no respiratory distress. Will discharge home with strict ED return precautions were given for respiratory distress, chest pain, dyspnea or neurologic deficits. Encouraged urgent outpatient follow-up with PMD. Life-threatening processes were co nsidered but are low suspicion at this time, given history, physical exam and ED workup. Pt was educated on all prescription medications and adverse effects. All patient's questions were answered and pt was stable at time of discharge. Life/limb-threatening differential includes but is not limited to, ACS, dysrhythmia, pneumothorax or hemothorax, pulmonary embolus, pneumonia, bro nchoconstriction, pulmonary edema, angioedema, epiglottitis, tracheitis, Agustin's angina, RPA/ENFORCEMENT SAFETY OFFICER, anaphylaxis, angioedema, cardiac tamponade or murmurs, pericarditis, myocarditis, poisoning or toxicity, sepsis or autoimmune/neurologic disease. I spoken with the patient and her caregivers. I explained the patient's condition, diagnoses and treatment plan based on the information available to me at this time. I have answered the patient and her caregiver's questions and addressed any concerns. The patient and her caregivers have a good understanding of patient's diagnosis, condition and treatment plan as can be expected at this point. Vital signs have been stable. Patient's condition is stable and appropriate for discharge from the emergency department. Patient will pursue further outpatient evaluation with primary care physician or other designated or consulting physician as outlined in the discharge instructions. The patient and/or caregivers are agreeable to this plan of care and follow-up instructions have been explained in detail. The patient and/or caregivers have received these instructions in written form and have expressed an understanding of the discharge instructions. The patient and/or caregivers are aware that any significant change of condition or worsening of symptoms should prompt immediate return to this or the closest emergency department or call to [facility] Disclaimer: Suni Disclaimer: This electronic medical record was generated, in whole or in part, using a voice recognition dictation system. Departure Departure: Impression: Primary Impression: Myalgia Additional Impressions: Fatigue Person under investigation for COVID-19 Disposition: 01 DC HOME SELF CARE/HOMELESS Condition: STABLE Referrals: PCP,NO (PCP) FOLLOW UP WITH FAMILY MEDICINE: [facility] [address] [address] [place] [facility] [address] [place] [address], Patient Instructions: Fatigue, Myalgia, Adult Additional Instructions: Return to ED immediately if your oxygen level drops below 90% (purchase a pulse oximetry at a medical supply store), difficulties breathing including rapid breathing or increased work of breathing (skin sucking under ribs), chest pain or stroke-like symptoms (facial droop, speech changes, arm/leg weakness). You have been tested for or diagnosed with COVID-19. It is an infection caused by a new type of coronavirus. COVID-19 will cause cold-like or mild flu symptoms in most. It can cause more severe symptoms like problems breathing in some. There is no treatment for COVID-19. The body will clear the infection over time. Self-care will help to ease discomfort. Steps to Take: Self-Care Rest as needed. Healthy habits may help you feel better. Steps include: Choose healthy foods including fruits and vegetables. Drink water throughout the day. Get plenty of sleep each night. If you smoke, try to quit. It may ease breathing. Avoid alcohol. Keep Others Healthy The virus can spread to others. Droplets are released every time you sneeze or cough. The droplets can get into the mouth, nose, or eyes of people near you and lead to infection. To lower the chances of spreading COVID-19 to others: Stay at home until your doctor has said it is safe to leave. If you tested positive this will mean staying isolated until both of the following are true: At least 7 days have passed since the start of illness. You are free of fever for at least 72 hours without the use of medicine. During this time: - Avoid public areas, events, or transportation. Do not return to work or school until your doctor has said it is safe to do so. - Call ahead if you need to go to a medical center. Let them know you may have COVID-19. It will help them guide you where to go. They may also ask you to wear a facemask when you come to the office. - If you call for emergency medical services, let them know you may have COVID- 19. While at home: - Try to avoid close contact with others. Stay about 6 feet away. - If possible, spend most of your time in a separate room from others. - Use a face mask if you will be in close contact with others such as sharing a room or vehicle. - Have someone wipe down common surfaces in the home. Use household banking manager every day on areas like doorknobs, counters, or sinks. - Cough or sneeze into a tissue. Throw the tissue away right after use. If a tissue is not available, cough or sneeze into your elbow. - Wash your hands often. Wash them after sneezing or coughing. Use soap and water and wash for at least 20 seconds. Alcohol based hand distributor cleaner can be used if soap and water is not available. - Do not prepare food for others. Avoid sharing personal items like forks, spoons, or toothbrushes. - Avoid close contact with pets while you are sick. There is no evidence of the virus passing to pets. This is a safety step until more is known about this virus. Isolation can be frustrating. Social interaction can help. Keep in touch with friends and family through phone and tech options. You can still interact with others in your home, just keep a safe distance of about 6 feet. Follow-up: Your doctors office will check in with you to see if there are any changes in your health. You may be asked to keep track of symptoms to share with them. They will also let you know when you are clear to be in public again. Problems to Look Out For: Contact your doctor if your recovery is not going as you expect. Get emergency care if you have problems such as: - Trouble breathing - Nonstop chest pain or pressure - Changes in awareness, confusion, or problems waking - Lips or face have bluish color - Worsening of symptoms If you think you have an emergency, call for emergency medical services right away. [facility] Oct 21, 2020 10:09
[2020-10-21 10:12] LABS: INFLUENZA A PATIENT NEGATIVE (NEGATIVE); INFLUENZA B PATIENT NEGATIVE (NEGATIVE)
--- NOTE | 2020-10-21 10:13 | RAD ---
XR CHEST 1V Clinical Indication: Reason: cough / Spl. Instructions: / History: Comparison: Two-view chest, August 21, 2013. Findings: The cardiomediastinal silhouette is normal. Lungs are clear. There is no pneumothorax. No pleural eff usion is appreciated. No acute bone abnormality. IMPRESSION: No acute cardiopulmonary process. Electronically signed by: Zafar Wood MD (10/21/2020 10:11 AM) [id number]
[2020-10-21] MEDS ORDERED: DEXAMETHASONE SOD PHOS 10 MG/ML VIAL. IV ONE (10:45)
[2020-10-21] MEDS ORDERED: DEXAMETHASONE 4 MG TABLET ONE (10:48)
[2020-10-21] MEDS ORDERED: DEXAMETHASONE 4 MG TABLET PO ONE (11:00)
[2020-10-21 11:50] VITALS: BP 116/80
== END 2020-10-21 11:52 | disposition home or self-care (01) ==
LOC: ER 08:54
DX: M79.10 Myalgia, unspecified site (principal); R53.83 Other fatigue; Z20.822 Contact with and (suspected) exposure to COVID-19; J45.909 Unspecified asthma, uncomplicated; F32.9 Major depressive disorder, single episode, unspecified; G43.909 Migraine, unspecified, not intractable, without status migrainosus; Z91.018 Allergy to other foods
CPT/HCPCS: 71045; 81025; 87804; 99285; C9803; J8540; U0003

== ENCOUNTER → 2021-04-20 | Emergency (ER) | payer SELFPAY ==
[~2021-04-20] VITALS: Ht 154.9 cm; Wt 85.6 kg
[~2021-04-20] MED LIST changes: +AMOX1TAB61 PO; +IOHEXOL 300 MG/ML 75 ML VIAL. IV ONE; +IV NORMAL SALINE 1,000ML 1,000 ML IV ONE; +KETOROLAC 30 MG/ML VIAL. IVP ONE; +KETOROLAC 30 MG/ML VIAL. ONE; +ONDA4TAB7 PO; +ONDANSETRON PF 4 MG/2 ML VIAL. IVP ONE
[2021-04-20 19:43] VITALS: BP 113/68
--- NOTE | 2021-04-20 19:47 | PHYS DOC ---
Past History Past Medical History: Asthma, Depression, Migraines (RAYMUNDO CALDERA APRN) Past Surgical History: Cholecystectomy, (RAYMUNDO CALDERA APRN) Smoking: Non-smoker Alcohol Use: Occasionally Drug Use: None (RAYMUNDO CALDERA APRN) General Adult EDM: Chief Complaint: ABDOMINAL PAIN HPI: HPI: Patient is a 25-year-old female presents to the ER today for left upper and lower quadrant pain that started at 4:00 this morning. Patient reports that she went to work after the pain started. She reports over the last 2 hours she has had nausea and vomiting. She rates the pain 8 out of 10, no radiation of pain, took ibuprofen 3 hours prior to arrival. Patient denies diarrhea, fevers, urinary complaints, chest pain, shortness of breath blood in vomit. (RAYMUNDO CALDERA APRN) Review of Systems: Review of Systems: 14 body systems of the review of systems have been reviewed. See HPI for pertinent positive and negative responses, otherwise all other systems are negative, nonpertinent or noncontributory (RAYMUNDO CALDERA APRN) Allergies: Allergies: Allergies Coded Allergies Type Severity Reaction Last Updated Verified cinnamon Allergy Severe tongue swells 10/21/20 Yes latex Allergy Unknown 04/20/21 Yes (RAYMUNDO CALDERA APRN) Physical Exam: PE: Constitutional: Well developed, well nourished, no acute distress, non-toxic appearance. [] HENT: Normocephalic, atraumatic Eyes: PERRL, conjunctiva normal, no discharge. [] Neck: Normal range of motion, no tenderness, supple, no stridor. [] Cardiovascular:Heart rate regular rhythm, no murmur [] Lungs & Thorax: Bilateral breath sounds clear to auscultation [] Abdomen: Bowel sounds normal, soft, no masses, no pulsatile masses, left upper and lower quadrant tenderness with palpation, no rebound tenderness, negative Rovsing sign. [] Skin: Warm, dry, no erythema, no rash. [] Back: No tenderness, positive left-sided CVA tenderness. [] Extremities: No tenderness, no cyanosis, no clubbing, ROM intact, no edema. [] Neurologic: Alert and oriented X 3, normal motor function, normal sensory function, no focal deficits noted. [] Psychologic: Affect normal, judgement normal, mood normal. [] (RAYMUNDO CALDERA APRN) Current Patient Data: Labs: Laboratory Tests Test 04/20/21 19:55 04/20/21 19:57 Urine Collection Type Unknown Urine Color Yellow Urine Clarity Clear Urine pH 7.0 Urine Specific [place] 1.020 Urine Protein Neg Urine Glucose (UA) Neg mg/dL Urine Ketones (Stick) Neg mg/dL Urine Blood Neg Urine Nitrite Neg Urine Bilirubin Neg Urine Urobilinogen Dipstick 0.2 mg/dL Urine Leukocyte Esterase Neg Urine RBC Rare /HPF Urine WBC Occ /HPF Urine Squamous Epithelial Cells Few /LPF Urine Bacteria Few /HPF Urine Mucus Slight /LPF White Blood Count 10.9 x10^3/uL Red Blood Count 4.66 x10^6/uL Hemoglobin 14.9 g/dL Hematocrit 43.6 % Mean Corpuscular Volume 94 fL Mean Corpuscular Hemoglobin 32 pg Mean Corpuscular Hemoglobin Concent 34 g/dL Red Cell Distribution Width 12.7 % Platelet Count 250 x10^3/uL Neutrophils (%) (Auto) 66 % Lymphocytes (%) (Auto) 24 % Monocytes (%) (Auto) 6 % Eosinophils (%) (Auto) 4 % Basophils (%) (Auto) 1 % Neutrophils # (Auto) 7.1 x10^3uL Lymphocytes # (Auto) 2.6 x10^3/uL Monocytes # (Auto) 0.7 x10^3/uL Eosinophils # (Auto) 0.5 x10^3/uL Basophils # (Auto) 0.1 x10^3/uL Bedside Urine HCG, Qualitative hcg negative Sodium Level 144 mmol/L Potassium Level 3.5 mmol/L Chloride Level 106 mmol/L Carbon Dioxide Level 26 mmol/L Anion Gap 12 Blood Urea Nitrogen 11 mg/dL Creatinine 0.8 mg/dL Estimated GFR (Cockcroft-Gault) 86.0 BUN/Creatinine Ratio 14 Glucose Level 104 mg/dL Calcium Level 8.7 mg/dL Total Bilirubin 0.2 mg/dL Aspartate Amino Transf (AST/SGOT) 16 U/L Alanine Aminotransferase (ALT/SGPT) 28 U/L Alkaline Phosphatase 94 U/L Total Protein 7.1 g/dL Albumin 3.8 g/dL Albumin/Globulin Ratio 1.2 Lipase 50 U/L Current Medications Medications (Trade) Dose Ordered Sig/Abhishek Route PRN Reason Start Time Stop Time Status Last Admin Dose Admin Ondansetron HCl (Zofran) 4 mg 1X ONCE IVP 04/20/21 19:45 04/20/21 19:49 DC 04/20/21 20:03 Sodium Chloride 1,000 ml @ 1,000 mls/hr 1X ONCE IV 04/20/21 19:45 04/20/21 20:44 DC 04/20/21 20:03 Fentanyl Citrate (Fentanyl 2ml Vial) 50 mcg 1X ONCE IVP 04/20/21 19:45 04/20/21 19:49 DC 04/20/21 20:03 Iohexol (Omnipaque 300 Mg/ml) 75 ml 1X ONCE IV 04/20/21 20:00 04/20/21 20:02 DC 04/20/21 20:20 (RAYMUNDO CALDERA APRN) EKG: EKG: [] (RAYMUNDO CALDERA APRN) Radiology/Procedures: Radiology/Procedures: PROCEDURE: CT ABD PELV W/ IV CONTRST ONLY Examination: CT of the abdomen pelvis with IV contrast HISTORY: History of left upper quadrant and left lower quadrant abdominal pain COMPARISON: 03/25/2017 Technique : Axial CT images of the abdomen pelvis were performed with IV contrast. Coronal and sagittal reformats are performed. Exposure: One or more of the following individualized dose reduction techniques were utilized for this examination: 1. Automated exposure control 2. Adjustment of the mA and/or kV according to patient size 3. Use of iterative reconstruction technique FINDINGS: The bibasilar lungs are clear. No evidence of free air identified in the abdomen. The liver, spleen, adrenals grossly appears unremarkable. Cholecystectomy changes identified in the stomach is mildly distended with vis ualized pancreas grossly appears unremarkable. Small bowel is nondilated. Mild fat stranding identified about the small bowel loops. Feces and gas identified in the colon. The appendix is normal. Urinary bladder is mildly distended. Small fluid identified in the limits. Cystic structure identified in the right adnexa measuring 3.5 cm. The bilateral kidneys enhance symmetrically. No evidence of lytic bony destructive lesion. IMPRESSION: 1. Mild fat stranding identified about the small bowel loops likely enteritis. 2. 3.5 cm cystic structure identified in the right adnexa could be a cyst or cystic lesion. Follow-up nonemergent ultrasound pelvis can be considered. Electronically signed by: Brad Hunt MD (04/20/2021 8:32 PM) [id number] DICTATED AND SIGNED BY: BRAD HUNT MD DATE: 04/20/212022 CC: EMERGENCY,DEPARTMENT; RAYMUNDO CALDERA APRN; PCP,CAROL ~MTH0 0 (RAYMUNDO CALDERA APRN) Heart Score: C/O Chest Pain: No Risk Factors: Risk Factors: DM, Current or recent (<one month) smoker, HTN, HLP, family history of CAD, obesity. Risk Scores: Score 0 - 3: 2.5% MACE over next 6 weeks - Discharge Home Score 4 - 6: 20.3% MACE over next 6 weeks - Admit for Clinical Observation Score 7 - 10: 72.7% MACE over next 6 weeks - Early Invasive Strategies (RAYMUNDO CALDERA APRN) Course & Med Decision Making: Course & Med Decision Making Pertinent Labs and Imaging studies reviewed. (See chart for details) Patient is a 25-year-old female being seen in the ER today for left upper and lower quadrant pain with nausea and vomiting. Work-up in the ER consisted of blood work, urine, CT scan of abdomen. Lab work was unremarkable. CT scan of your abdomen showed enteritis. Patient educated on fluid rehydration, the use of probiotics, and a bland diet. Patient discharged home with nausea medication and antibiotic. Patient's case discussed with supervising physician. I discussed with patient all findings and diagnostic testing as well as the need to follow-up with PCP for further evaluation and treatment or return to the ER if any new or worsening symptoms. Strict return precautions were also discussed at length. Patient voiced understanding and agreement with the plan. Patient is hemodynamically stable at the time of disposition. (RAYMUNDO CALDERA APRN) Dragon Disclaimer: Dragon Disclaimer: This electronic medical record was generated, in whole or in part, using a voice recognition dictation system. (RAYMUNDO CALDERA APRN) Attending Co-Sign The patient was seen and interviewed as well as examined at the bedside. The chart was reviewed. The case was discussed. Agree with the plan of care. (MACIEJ ASHTON DO) Departure Departure: Impression: Primary Impression: Gastroenteritis Disposition: HOME / SELF CARE / HOMELESS Condition: GOOD Referrals: PCP,NO (PCP) Patient Instructions: Viral Gastroenteritis Additional Instructions: You were seen for nausea, vomiting, and abdominal pain. You most likely have a viral gastroenteritis as evidenced on your CT scan which should resolve in the next few days to a week. You are discharged home with a medication for nausea and an antibiotic. You should return to the ER if you develop abdominal pain, fever greater than 100.3 degrees, black or bloody stools, black or bloody vomiting, cannot keep water ingested, or any new or concerning symptoms. Please make sure that you are drinking plenty of fluids and advance your diet slowly. Once he can keep down fluids and you can restart bland foods (brat diet-bread, rice, applesauce, toast, crackers, etc.). You can also start taking a probiotic. EMERGENCY DEPARTMENT GENERAL DISCHARGE INSTRUCTIONS Thank you for coming to [facility] (ED) today and trusting us with you care. We trust that you had a positivie experience in our Emergency Department. If you wish to speak to the department management, you may call the director at [phone]. YOUR FOLLOW UP INSTRUCTIONS ARE FOLLOWS: 1. Do you have a private Doctor? If you do not have a private doctor, please ask for a resource list of physicians or clinics that may be able to assist you with follow up care. 2. The Emergency Physician has interpreted your x-rays. The X-Ray specialist will also review them. If there is a change in the findings, you will be notified in 48 hours when at all possible. 3. A lab test or culture has been done, your results will be reviewed and you will be notified if you need a change in treatment. ADDITIONAL INSTRUCTIONS AND INFORMATION: 1. Your care today has been supervised by a physician who is specially trained in emergency care. Many problems require more than one evaluation for a complete diagnosis and treatment. We recommend that you schedule your follow up appointment as recommended to ensure complete treatment of you illness or injury. If you are unable to obtain follow up care and continue to have a problem, or if your condition worsens, we recommend that you return to the ED. 2. We are not able to safely determine your condition over the phone nor are we able to give sound medical advice over the phone. For these safety reasons, if you call for medical advice we will ask you to come to the ED for further evaluation. 3. If you have any questions regarding these discharge instructions please call the ED at [phone]. SAFETY INFORMATION: In the interest of safety, wellness, and injury prevention; we encourage you to wear your sealbelt, if you smoke; quite smoking, and we encourage family to use a protective helmet for bicycling and other sporting events that present an increased risk for head injury. IF YOUR SYMPTOMS WORSEN OR NEW SYMPTOMS DEVELOP, OR YOU HAVE CONCERNS ABOUT YOUR CONDITION; OR IF YOUR CONDITION WORSENS WHILE YOU ARE WAITING FOR YOUR FOLLOW UP APPOINTMENT; EITHER CONTACT YOUR PRIMARY CARE DOCTOR, THE PHYSICIAN WHOSE NAME AND NUMBER YOU WERE GIVEN, OR RETURN TO THE ED IMMEDIATELY. Scripts Amoxicillin/Potassium Clav (AUGMENTIN 875-125 TABLET) 1 Each Tablet 1 TAB PO BID for enteritis for 7 Days, #14 TAB 0 Refills Prov: RAYMUNDO CALDERA APRN 04/20/21 Ondansetron Hcl (ZOFRAN) 4 Mg Tablet 4 MG PO TID PRN PRN for NAUSEA for 5 Days, #15 TAB 0 Refills Prov: RAYMUNDO CALDERA APRN 04/20/21 RAYMUNDO CALDERA APRN Apr 20, 2021 19:47 MACIEJ ASHTON DO Apr 22, 2021 12:20
[2021-04-20 20:24] LABS: BASO # 0.1 x10^3/uL (0.0-0.2); BASO % 1 % (0-3); EOS # 0.5 x10^3/uL (0.0-0.7); EOS % 4 % (0-3); HEMATOCRIT 43.6 % (36.0-47.0); HEMOGLOBIN 14.9 g/dL (12.0-15.5); LYMPH # 2.6 x10^3/uL (1.0-4.8); LYMPH % 24 % (24-48); MEAN CORPUSCULAR HEMOGLOBIN 32 pg (25-35); MEAN CORPUSCULAR HGB CONC 34 g/dL (31-37); MEAN CORPUSCULAR VOLUME 94 fL (79-100); MONO # 0.7 x10^3/uL (0.0-1.1); MONO % 6 % (0-9); NEUT # 7.1 x10^3uL (1.8-7.7); NEUT % 66 % (31-73); PLATELET COUNT 250 x10^3/uL (140-400); RED BLOOD COUNT 4.66 x10^6/uL (3.50-5.40); RED CELL DISTRIBUTION WIDTH 12.7 % (11.5-14.5); WHITE BLOOD COUNT 10.9 x10^3/uL (4.0-11.0)
--- NOTE | 2021-04-20 20:35 | RAD ---
Examination: CT of the abdomen pelvis with IV contrast HISTORY: History of left upper quadrant and left lower quadrant abdominal pain COMPARISON: 03/25/2017 Technique : Axial CT images of the abdomen pelvis were performed with IV contrast. Coronal and sagitt al reformats are performed. Exposure: One or more of the following individualized dose reduction techniques were utilized for th is examination: 1. Automated exposure control 2. Adjustment of the mA and/or kV according to patien t size 3. Use of iterative reconstruction technique FINDINGS: The bibasilar lungs are clear. No evidence of free air identified in the abdomen. The liver, spleen, adrenals grossly appears unremarkable. Cholecystectomy changes identified in the stomach is mildly di stended with visualized pancreas grossly appears unremarkable. Small bowel is nondilated. Mild fat st randing identified about the small bowel loops. Feces and gas identified in the colon. The appendix i s normal. Urinary bladder is mildly distended. Small fluid identified in the limits. Cystic structure identified in the right adnexa measuring 3.5 cm. The bilateral kidneys enhance symm etrically. No evidence of lytic bony destructive lesion. IMPRESSION: 1. Mild fat stranding identified about the small bowel loops likely enteritis. 2. 3.5 cm cystic structure identified in the right adnexa could be a cyst or cystic lesion. Follow-u p nonemergent ultrasound pelvis can be considered. Electronically signed by: Brad Hunt MD (04/20/2021 8:32 PM) [id number]
[2021-04-20 20:38] LABS: CLARITY,URINE CLEAR; COLOR,URINE YELLOW
[2021-04-20 20:39] LABS: BILIRUBIN,URINE NEG (NEG); GLUCOSE,URINE NEG (NEG); NITRITE,URINE NEG (NEG); UROBILINOGEN,URINE 0.2 mg/dL (0.2 mg/dL)
[2021-04-20 20:41] LABS: BACTERIA,URINE FEW /HPF (0-FEW); RBC,URINE RARE /HPF (0-2); SQUAMOUS EPITHELIAL CELL,UR FEW /LPF; WBC,URINE OCC /HPF (0-4)
[2021-04-20 20:59] LABS: CALCIUM 8.7 mg/dL (8.5-10.1); CREATININE 0.8 mg/dL (0.6-1.0); POTASSIUM 3.5 mmol/L (3.5-5.1)
[2021-04-20 21:02] LABS: ALBUMIN 3.8 g/dL (3.4-5.0); ALBUMIN/GLOBULIN RATIO 1.2 (1.0-1.7); TOTAL BILIRUBIN 0.2 mg/dL (0.2-1.0); TOTAL PROTEIN 7.1 g/dL (6.4-8.2)
== END ==
LOC: ER 19:32
DX: K52.9 Noninfective gastroenteritis and colitis, unspecified (principal); J45.909 Unspecified asthma, uncomplicated; F32.9 Major depressive disorder, single episode, unspecified; G43.909 Migraine, unspecified, not intractable, without status migrainosus; Z90.49 Acquired absence of other specified parts of digestive tract; Z98.890 Other specified postprocedural states; Z91.040 Latex allergy status; Z91.018 Allergy to other foods
CPT/HCPCS: 36415; 74177; 80053; 81001; 81025; 83690; 85025; 96361; 96374; 96375; 99285; J1885; J2405; J3010; J7030; Q9967

== ENCOUNTER 2021-05-14 18:56 | Emergency (ER) | payer SELFPAY ==
[~2021-05-14] VITALS: Ht 154.9 cm; Wt 85.4 kg
[~2021-05-14 18:56] MED LIST changes: -IOHEXOL 300 MG/ML 75 ML VIAL. IV ONE; -IV NORMAL SALINE 1,000ML 1,000 ML IV ONE; -KETOROLAC 30 MG/ML VIAL. IVP ONE; -KETOROLAC 30 MG/ML VIAL. ONE; -ONDANSETRON PF 4 MG/2 ML VIAL. IVP ONE
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
[2021-05-14] MEDS ORDERED: IBUPROFEN 600 MG TABLET. PO ONE (20:30)
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
[2021-05-14 21:10] VITALS: BP 114/68
== END 2021-05-14 21:15 | disposition home or self-care (01) ==
LOC: ER 18:56
DX: S20.211A Contusion of right front wall of thorax, initial encounter (principal); J45.909 Unspecified asthma, uncomplicated; M25.552 Pain in left hip; Z90.49 Acquired absence of other specified parts of digestive tract; Y04.2XXA Assault by strike against or bumped into by another person, initial encounter; Y93.89 Activity, other specified; Y92.89 Other specified places as the place of occurrence of the external cause; Y99.8 Other external cause status
CPT/HCPCS: 70360; 71100; 73502; 81025; 99284-25

== ENCOUNTER 2021-06-17 19:32 | Emergency (ER) | payer SELFPAY ==
[~2021-06-17] VITALS: Ht 154.9 cm; Wt 85.4 kg
[2021-06-17 19:43] VITALS: BP 116/71
[2021-06-17] MEDS ORDERED: DEXAMETHASONE 4 MG TABLET PO ONE (19:45)
[2021-06-17] MEDS ORDERED: ACETAMINOPHEN 500 MG TABLET PO ONE (19:45)
[2021-06-17] MEDS ORDERED: KETOROLAC TROMETHAMINE 10 MG TABLET PO ONE (19:45)
[2021-06-17] MEDS ORDERED: ALBUTEROL SULFATE 8GM INHALER. INH ONE (19:45)
--- NOTE | 2021-06-17 19:52 | PHYS DOC ---
Past History Past Medical History: Asthma, Depression, Migraines Additional Past Medical Histor: ptsd Past Surgical History: Cholecystectomy, , Tubal ligation Smoking: Non-smoker Alcohol Use: None Drug Use: None Adult General Chief Complaint Chief Complaint: SHORTNESS OF BREATH HPI HPI Patient is a 25-year-old female with a past medical history significant for asthma who presents for Covid swab and mild cough/wheeze. States over the last couple of days she has had some fatigue, a mild intermittent cough and wheeze. States she is currently a smoker as well but does not think her cough is any worse than usual and came in because her made her. Denies any recent travels, traumas, fevers, chest pain, shortness of breath, abdominal pain, nausea, vomiting, dysuria, hematuria or blood in stool. States she is eating and drinking normally. States he is making urine and stool normally for her. Review of Systems Review of Systems Review of systems otherwise unremarkable except noted in HPI Allergies Allergies Allergies Coded Allergies Type Severity Reaction Last Updated Verified cinnamon Allergy Severe tongue swells 10/21/20 Yes latex Allergy Unknown 04/20/21 Yes Physical Exam Physical Exam Constitutional: Well developed, well nourished, no acute distress, non-toxic appearance. [] HENT: Normocephalic, atraumatic, bilateral external ears normal, bilateral tym panic membranes normal, oropharynx moist, no oral exudates, nose normal. [] Eyes: conjunctiva normal, no discharge. [] Neck: Normal range of motion, no tenderness, supple, no stridor. [] Cardiovascular:Heart rate regular rhythm, no murmur [] Lungs & Thorax: Mild bilateral end expiratory wheeze, no rhonchi or rales, not tachypneic or hypoxic Abdomen:soft, no tenderness, no masses, no pulsatile masses. [] Skin: Warm, dry, no erythema, no rash. [] Neurologic: Alert and oriented X 3, no focal deficits noted. [] Psychologic: Affect normal, judgement normal, mood normal. [] Current Patient Data Vital Signs Vital Signs Date Time Temp Pulse Resp B/P (MAP) Pulse Ox O2 Delivery O2 Flow Rate FiO2 06/17/21 19:43 98.9 75 20 116/71 99 EKG EKG [] Radiology/Procedures Radiology/Procedures [] Heart Score C/O Chest Pain: No Risk Factors: Risk Factors: DM, Current or recent (<one month) smoker, HTN, HLP, family history of CAD, obesity. Risk Scores: Risk Factors: DM, Current or recent (<one month) smoker, HTN, HLP, family history of CAD, obesity. Course & Med Decision Making Course & Med Decision Making Patient is a 25-year-old female who presents for Covid swab, body aches and wheeze Vital signs not concerning. Physical exam noted above. Given dexamethasone and breathing treatment for asthma exacerbation. Given Tylenol and ibuprofen for body aches. Covid swab pending. Given Covid information and quarantine education. Advised to follow-up in the morning with primary care physician. Gave strict return precautions to the ED. Patient grateful, verbalized understanding and agreed with plan of discharge. Dragon Disclaimer Dragon Disclaimer This electronic medical record was generated, in whole or in part, using a voice recognition dictation system. Departure Departure: Impression: Primary Impression: Body aches Additional Impression: Wheeze Disposition: HOME / SELF CARE / HOMELESS Condition: GOOD Referrals: PCP,CAROL (PCP) DALJIT ODOM MD Patient Instructions: Asthma Attacks, Prevention, Asthma, Adult Additional Instructions: Thank you for coming into the emergency department tonight and allowing us to take care of you. Please continue your Tylenol and ibuprofen at home as needed. Please take your as medicine as prescribed. Please call your primary care physician first thing in the morning to update on ED visit and set up a follow- up as soon as possible. You have been tested for or diagnosed with COVID-19. It is an infection caused by a new type of coronavirus. COVID-19 will cause cold-like or mild flu symptoms in most. It can cause more severe symptoms like problems breathing in some. There is no treatment for COVID-19. The body will clear the infection over time. Self-care will help to ease discomfort. Steps to Take: Self-Care Rest as needed. Healthy habits may help you feel better. Steps include: Choose healthy foods including fruits and vegetables. Drink water throughout the day. Get plenty of sleep each night. If you smoke, try to quit. It may ease breathing. Avoid alcohol. Keep Others Healthy The virus can spread to others. Droplets are released every time you sneeze or cough. The droplets can get into the mouth, nose, or eyes of people near you and lead to infection. To lower the chances of spreading COVID-19 to others: Stay at home until your doctor has said it is safe to leave. If you tested positive this will mean staying isolated until both of the following are true: At least 7 days have passed since the start of illness. You are free of fever for at least 72 hours without the use of medicine. During this time: - Avoid public areas, events, or transportation. Do not return to work or school until your doctor has said it is safe to do so. - Call ahead if you need to go to a medical center. Let them know you may have COVID-19. It will help them guide you where to go. They may also ask you to wear a facemask when you come to the office. - If you call for emergency medical services, let them know you may have COVID- 19. While at home: - Try to avoid close contact with others. Stay about 6 feet away. - If possible, spend most of your time in a separate room from others. - Use a face mask if you will be in close contact with others such as sharing a room or vehicle. - Have someone wipe down common surfaces in the home. Use household pharmacy technician program director every day on areas like doorknobs, counters, or sinks. - Cough or sneeze into a tissue. Throw the tissue away right after use. If a tissue is not available, cough or sneeze into your elbow. - Wash your hands often. Wash them after sneezing or coughing. Use soap and water and wash for at least 20 seconds. Alcohol based hand bell cleaner can be used if soap and water is not available. - Do not prepare food for others. Avoid sharing personal items like forks, spoons, or toothbrushes. - Avoid close contact with pets while you are sick. There is no evidence of the virus passing to pets. This is a safety step until more is known about this virus. Isolation can be frustrating. Social interaction can help. Keep in touch with friends and family through phone and tech options. You can still interact with others in your home, just keep a safe distance of about 6 feet. Follow-up: Your doctors office will check in with you to see if there are any changes in your health. You may be asked to keep track of symptoms to share with them. They will also let you know when you are clear to be in public again. Problems to Look Out For: Contact your doctor if your recovery is not going as you expect. Get emergency care if you have problems such as: - Trouble breathing - Nonstop chest pain or pressure - Changes in awareness, confusion, or problems waking - Lips or face have bluish color - Worsening of symptoms If you think you have an emergency, call for emergency medical services right away. As taken from [facility] Problem Qualifiers MARGIE GARCIA MD Jun 17, 2021 19:52
== END 2021-06-17 20:02 | disposition home or self-care (01) ==
LOC: ER 19:32
DX: M79.10 Myalgia, unspecified site (principal); R53.83 Other fatigue; R05 Cough; J45.909 Unspecified asthma, uncomplicated; G43.909 Migraine, unspecified, not intractable, without status migrainosus; F32.9 Major depressive disorder, single episode, unspecified; Z20.822 Contact with and (suspected) exposure to COVID-19; Z91.040 Latex allergy status; Z91.018 Allergy to other foods
CPT/HCPCS: 94640; 99284; C9803; J8540; U0003; 94664

== ENCOUNTER 2021-11-05 13:00 | Emergency (ER) | payer SELFPAY ==
[~2021-11-05] VITALS: Ht 154.9 cm; Wt 87.2 kg
--- NOTE | 2021-11-05 13:16 | PHYS DOC ---
Past History Past Medical History: Asthma, Depression, Migraines Additional Past Medical Histor: ptsd Past Surgical History: Cholecystectomy, , Tubal ligation Smoking: Non-smoker Alcohol Use: None Drug Use: None Adult General Chief Complaint Chief Complaint: SUICIDAL IDEATION HPI HPI Patient is a 26-year-old female presenting for self-harm. Reports she was performing a televisit with therapist when she reported taking approximately 30 Latuda medication of unknown dose that were approximately 48 hours prior to arrival in attempt to kill her self. States she later tried to hang herself using a rope in tree limb but the tree limb broke. States she then woke up in a car and was able to get back home. Stated that she had therapy today and after disclosing this with therapist, was advised to present to ER for evaluation. Reports she has history of prior suicidal attempts via overdose and has had isra or inpatient psychiatric visits in the past. No active SI/HI reported. Only other medical condition that is at baseline is asthma Review of Systems Review of Systems Fourteen body systems of review of systems have been reviewed. See HPI for pertinent positives and negative responses, other amador all other systems are negative, non-pertinent or non-contributory Allergies Allergies Allergies Coded Allergies Type Severity Reaction Last Updated Verified cinnamon Allergy Severe tongue swells 10/21/20 Yes latex Allergy Unknown 04/20/21 Yes Physical Exam Physical Exam Constitutional: Well developed, well nourished, no acute distress, non-toxic appearance. HENT: Normocephalic, atraumatic, bilateral external ears normal, oropharynx moist, no oral exudates, nose normal. Eyes: PERRLA, EOMI, conjunctiva normal, no discharge. Neck: Normal range of motion, no tenderness, supple, no stridor. Cardiovascular: Heart rate regular, sinus rhythm, no murmurs rubs or gallops Lungs & Thorax: Bilateral breath sounds clear to auscultation Abdomen: Bowel sounds normal, soft, no tenderness, no masses, no pulsatile masses. Nonsurgical abdomen, no peritoneal signs Skin: Warm, dry, no erythema, no rash. Back: No tenderness, no CVA tenderness. Extremities: No tenderness, no cyanosis, no clubbing, ROM intact, no edema. Neurologic: Alert and oriented X 3, grossly normal motor & sensory function, no focal deficits noted. Psychologic: Odd affect, normal mood Current Patient Data Vital Signs Vital Signs Date Time Temp Pulse Resp B/P (MAP) Pulse Ox O2 Delivery O2 Flow Rate FiO2 11/05/21 13:56 98.7 60 16 112/80 (91) 98 Room Air Vital Signs Date Time Temp Pulse Resp B/P (MAP) Pulse Ox O2 Delivery O2 Flow Rate FiO2 11/05/21 13:56 98.7 60 16 112/80 (91) 98 Room Air Lab Results Laboratory Tests Test 11/05/21 14:12 11/05/21 14:21 Urine Test Negative Urine Opiates Screen Neg Urine Methadone Screen Neg Urine Barbiturates Neg Urine Phencyclidine Screen Neg Urine Amphetamine/Methamphetamine Neg Urine Benzodiazepines Screen Neg Urine Cocaine Screen Neg Urine Cannabinoids Screen Neg Urine Ethyl Alcohol Neg White Blood Count 7.6 x10^3/uL Red Blood Count 4.74 x10^6/uL Hemoglobin 15.1 g/dL Hematocrit 43.6 % Mean Corpuscular Volume 92 fL Mean Corpuscular Hemoglobin 32 pg Mean Corpuscular Hemoglobin Concent 35 g/dL Red Cell Distribution Width 12.9 % Platelet Count 258 x10^3/uL Neutrophils (%) (Auto) 67 % Lymphocytes (%) (Auto) 23 % Monocytes (%) (Auto) 6 % Eosinophils (%) (Auto) 4 % Basophils (%) (Auto) 1 % Neutrophils # (Auto) 5.1 x10^3uL Lymphocytes # (Auto) 1.8 x10^3/uL Monocytes # (Auto) 0.5 x10^3/uL Eosinophils # (Auto) 0.3 x10^3/uL Basophils # (Auto) 0.0 x10^3/uL Sodium Level 140 mmol/L Potassium Level 4.0 mmol/L Chloride Level 103 mmol/L Carbon Dioxide Level 27 mmol/L Anion Gap 10 Blood Urea Nitrogen 11 mg/dL Creatinine 0.7 mg/dL Estimated GFR (Cockcroft-Gault) 99.6 BUN/Creatinine Ratio 16 Glucose Level 88 mg/dL Calcium Level 8.9 mg/dL Total Bilirubin 0.3 mg/dL Aspartate Amino Transf (AST/SGOT) 13 U/L Alanine Aminotransferase (ALT/SGPT) 22 U/L Alkaline Phosphatase 83 U/L Total Protein 6.9 g/dL Albumin 3.7 g/dL Albumin/Globulin Ratio 1.2 Salicylates Level 3.3 mg/dL Salicylate Last Dose Date Unknown Salicylate Last Dose Time Unknown Acetaminophen Level < 2 mcg/mL Acetaminophen Last Dose Date Unknown Acetaminophen Last Dose Time Unknown Ethyl Alcohol Level < 10 mg/dL EKG EKG EKG ordered and interpreted by myself 1501 hrs. as sinus rhythm at 67 bpm, unremarkable intervals, no axis deviation, nonspecific T wave abnormality in lead III otherwise no acute ischemic findings, no STEMI EKG ordered and interpreted by myself 1657 hrs. as sinus rhythm 62 bpm, unremarkable intervals, no axis deviation, same T wave abnormality noted in lead III otherwise no acute ischemic findings, no STEMI Radiology/Procedures Radiology/Procedures EXAM: CT cervical spine without contrast INDICATION: Attempted hanging 40 hours ago COMPARISON: None TECHNIQUE: Axial CT imaging through cervical spine without intravenous contrast. Sagittal and coronal reformats were obtained. One or more of the following individualized dose reduction techniques were utilized for this examination: 1. Automated exposure control 2. Adjustment of the mA and/or kV according to patient size 3. Use of iterative reconstruction technique. FINDINGS: No acute fracture. Alignment is normal. Disc spaces are maintained. The craniocervical junction and atlantoaxial intervals are normal. Facet joints are normal. Prevertebral soft tissues normal. IMPRESSION: No acute osseous abnormality. Electronically signed by: Manju Chow MD (11/05/2021 2:55 PM) [id number] Heart Score C/O Chest Pain: No Risk Factors: Risk Factors: DM, Current or recent (<one month) smoker, HTN, HLP, family history of CAD, obesity. Risk Scores: Risk Factors: DM, Current or recent (<one month) smoker, HTN, HLP, family history of CAD, obesity. Course & Med Decision Making Course & Med Decision Making ABCs nonconcerning HPI physical exam and comprehensive ER work-up nonconcerning for any emergent or surgical issues Patient's physical exam unremarkable, no obvious signs of attempted hanging with remaining work-up nonconcerning Patient's reportedly to to overdose reviewed with poison control. Appropriate screening/work-up/monitoring ensued with subsequent medical clearance Behavioral health team consulted who reviewed patient case and independently saw and evaluated patient. They did not feel patient required inpatient psychiatric evaluation I reviewed evaluation and decision with behavioral health specialist in addition to patient, all in favor for discharge home with safety plan. I question legitimacy of patient's reported attempts today but with that said, all efforts were made to provide her with adequate resources to ensure no further attempts happen. Strict return precautions discussed prior to departure Suni Disclaimer Suni Disclaimer This electronic medical record was generated, in whole or in part, using a voice recognition dictation system. Departure Departure: Impression: Primary Impression: Self-harming behavior Additional Impression: History of depressed bipolar disorder Disposition: HOME / SELF CARE / HOMELESS Condition: STABLE Referrals: PCP,NO (PCP) Additional Instructions: As discussed prior to ER departure, your vitals, physical exam and comprehensive ER work-up were nonconcerning for any emergent or surgical issues. Your case was discussed with poison control who after work-up today medically cleared you given recent reported ingestion. You were also seen and evaluated by our mobile behavioral health specialist team. There is no indication for any inpatient hospital psychiatric transfer for continued inpatient care. Safety plan was created and reviewed with you at length, please adhere to this and follow-up in outpatient setting per safety plan. If any concerning signs or symptoms present prior to outpatient follow-up please do not hesitate to come back for repeat evaluation. It was a pleasure to take care of you and I wish you the best going forward Problem Qualifiers ELADIA DONALD DO Nov 05, 2021 13:16
[2021-11-05 14:58] LABS: U PREG PATIENT NEGATIVE (NEG)
--- NOTE | 2021-11-05 14:58 | RAD ---
EXAM: CT cervical spine without contrast INDICATION: Attempted hanging 40 hours ago COMPARISON: None TECHNIQUE: Axial CT imaging through cervical spine without intravenous contrast. Sagittal and coronal reformats were obtained. One or more of the following individualized dose reduction techniques were utilized for this examinat ion: 1. Automated exposure control 2. Adjustment of the mA and/or kV according to patient size 3. Use of iterative reconstruction technique. FINDINGS: No acute fracture. Alignment is normal. Disc spaces are maintained. The craniocervical junction and a tlantoaxial intervals are normal. Facet joints are normal. Prevertebral soft tissues normal. IMPRESSION: No acute osseous abnormality. Electronically signed by: Manju Chow MD (11/05/2021 2:55 PM) [id number]
[2021-11-05 15:02] LABS: BASO % 1 % (0-3); EOS # 0.3 x10^3/uL (0.0-0.7); EOS % 4 % (0-3); HEMATOCRIT 43.6 % (36.0-47.0); HEMOGLOBIN 15.1 g/dL (12.0-15.5); LYMPH # 1.8 x10^3/uL (1.0-4.8); LYMPH % 23 % (24-48); MEAN CORPUSCULAR HEMOGLOBIN 32 pg (25-35); MEAN CORPUSCULAR HGB CONC 35 g/dL (31-37); MEAN CORPUSCULAR VOLUME 92 fL (79-100); MONO # 0.5 x10^3/uL (0.0-1.1); MONO % 6 % (0-9); NEUT # 5.1 x10^3uL (1.8-7.7); NEUT % 67 % (31-73); PLATELET COUNT 258 x10^3/uL (140-400); RED BLOOD COUNT 4.74 x10^6/uL (3.50-5.40); RED CELL DISTRIBUTION WIDTH 12.9 % (11.5-14.5); WHITE BLOOD COUNT 7.6 x10^3/uL (4.0-11.0)
[2021-11-05 15:08] LABS: CALCIUM 8.9 mg/dL (8.5-10.1); CREATININE 0.7 mg/dL (0.6-1.0); GFR 99.6
[2021-11-05 15:10] LABS: BARBITURATES NEG (NEG); BENZODIAZEPINES NEG (NEG); CANNABINOIDS NEG (NEG); COCAINE NEG (NEG); METHADONE NEG (NEG); OPIATES NEG (NEG); PHENCYCLIDINE NEG (NEG)
[2021-11-05 15:13] LABS: AMPHETAMINE/METHAMPHETAMINE NEG (NEG)
[2021-11-05 15:13] LABS: ACETAMIN < 2 mcg/mL (10-30); ETHANOL < 10 mg/dL (0-10); SALIC 3.3 mg/dL (2.8-20.0)
[2021-11-05 15:14] LABS: ALBUMIN 3.7 g/dL (3.4-5.0); ALBUMIN/GLOBULIN RATIO 1.2 (1.0-1.7); TOTAL BILIRUBIN 0.3 mg/dL (0.2-1.0); TOTAL PROTEIN 6.9 g/dL (6.4-8.2)
[2021-11-05 17:09] VITALS: BP 116/78
--- NOTE | 2021-11-05 19:25 | EKG ---
[address] [address] Test Date: 2021-11-05 Test Time: 16:54:54 Pat Name: KAMINI ROJAS Department: Room: Gender: F Chief Client Officer: FABIENNE : 1995 Requested By: ELADIA DONALD Order Number: [id number] Reading MD: Jonathan Graf Measurements Intervals [place] Rate: 62 P: 24 [place]: 170 QRS: 41 QRSD: 84 T: 17 QT: 380 QTc: 388 Interpretive Statements SINUS ARRHYTHMIA Electronically Signed On 11-06-2021 12:51:10 JAIL OFFICER by Jonathan Graf
--- NOTE | 2021-11-05 19:37 | EKG ---
[address] [address] Test Date: 2021-11-05 Test Time: 14:50:42 Pat Name: KAMINI ROJAS Department: Room: Gender: F Dried Fruit Washer: FABIENNE : 1995 Requested By: ELADIA DONALD Order Number: [id number] Reading MD: Jonathan Graf Measurements Intervals [place] Rate: 67 P: 27 [place]: 170 QRS: 45 QRSD: 84 T: 20 QT: 374 QTc: 398 Interpretive Statements SINUS ARRHYTHMIA Electronically Signed On 11-06-2021 12:55:37 IT AUDITOR by Jonathan Graf
== END 2021-11-05 17:07 | disposition home or self-care (01) ==
LOC: ER 13:00
DX: R45.851 Suicidal ideations (principal); F31.9 Bipolar disorder, unspecified; F41.9 Anxiety disorder, unspecified; G43.909 Migraine, unspecified, not intractable, without status migrainosus; Z91.040 Latex allergy status; Z91.018 Allergy to other foods
CPT/HCPCS: 36415; 72125; 80053; 80307; 80329; 81025; 85025; 93005; 99285; G0480

== ENCOUNTER 2021-12-27 01:17 | Emergency (ER) | payer SELFPAY ==
[~2021-12-27] VITALS: Ht 154.9 cm; Wt 87.2 kg
--- NOTE | 2021-12-27 01:23 | PHYS DOC ---
Past History Past Medical History: Asthma, Depression, Migraines Additional Past Medical Histor: ptsd Past Surgical History: Cholecystectomy, , Tubal ligation Smoking: Non-smoker Alcohol Use: Heavy Drug Use: None Adult General HPI HPI Patient is a 26-year-old female, who presents with a chief complaint of right a nkle pain after twisting it while getting out of her truck just before coming to the emergency department. States that the pain is 7 out of 10, sharp in nature and hurts when she walks. Did not take any medications. Denies any other injuries. Review of Systems Review of Systems Review of systems otherwise unremarkable except noted in HPI Allergies Allergies Allergies Coded Allergies Type Severity Reaction Last Updated Verified cinnamon Allergy Severe tongue swells 10/21/20 Yes latex Allergy Unknown 04/20/21 Yes Physical Exam Physical Exam Constitutional: Well developed, well nourished, no acute distress, non-toxic appearance. [] HENT: Normocephalic, atraumatic, bilateral external ears normal, oropharynx m oist, no oral exudates, nose normal. [] Skin: Warm, dry, no erythema, no rash. [] Back: No tenderness, Extremities: Neurovascular exam intact, swelling about the right lateral malleolus with no obvious deformities or bruising but some swelling Neurologic: Alert and oriented X 3, normal motor function, normal sensory function, no focal deficits noted. [] Psychologic: Affect normal, judgement normal, mood normal. [] EKG EKG [] Radiology/Procedures Radiology/Procedures [] Heart Score C/O Chest Pain: No Risk Factors: Risk Factors: DM, Current or recent (<one month) smoker, HTN, HLP, family history of CAD, obesity. Risk Scores: Risk Factors: DM, Current or recent (<one month) smoker, HTN, HLP, family history of CAD, obesity. Course & Med Decision Making Course & Med Decision Making Patient is a 26-year-old female who presents with right ankle pain Vital signs nonconcerning. Physical exam noted above. Given pain medicine and ice pack. Placed in Miquel wrap. Discussed symptom treatment at home. Sent home with ice pack Advised to follow-up with primary care physician when she can. Gave return precautions to the ED Patient grateful, verbalized understanding and agreed with plan of discharge. [] Dragon Disclaimer Dragon Disclaimer This electronic medical record was generated, in whole or in part, using a voice recognition dictation system. Departure Departure: Impression: Primary Impression: Ankle sprain Disposition: HOME / SELF CARE / HOMELESS Condition: STABLE Referrals: PCP,CAROL (PCP) [facility] MADSEN Patient Instructions: Ankle Sprain, RICE - Routine Care for Injuries Additional Instructions: Thank you for coming into the emergency department tonight and allowing us to take care of you. Please read the attached information carefully to go over things we discussed. You can use Tylenol, ibuprofen and ice as needed and as tolerated. Please follow-up with your primary care physician on Tuesday to update on ED visit and set up a follow-up as needed. Please come back with new or concerning symptoms as discussed. MARGIE GARCIA MD Dec 27, 2021 01:23
[2021-12-27] MEDS ORDERED: IBUPROFEN 600 MG TABLET. PO ONE (01:30)
[2021-12-27] MEDS ORDERED: ACETAMINOPHEN 500 MG TABLET PO ONE (01:30)
--- NOTE | 2021-12-27 01:53 | RAD ---
XR EXAM OF ANKLE_RIGHT 3VIEWS History: Twisted ankle. Pain. Comparison: None. Findings: Osseous mineralization is normal. No acute fracture or dislocaton. The ankle mortise and talar dome a re intact. No significant degenerative changes. Lateral ankle soft tissue swelling. Impression: 1. Lateral ankle soft tissue swelling without acute osseous abnormality. Electronically signed by: Gomez De La Garza MD (12/27/2021 1:51 AM) [facility]
[2021-12-27 02:10] VITALS: BP 130/70
== END 2021-12-27 02:10 | disposition home or self-care (01) ==
LOC: ER 01:17
DX: S93.401A Sprain of unspecified ligament of right ankle, initial encounter (principal); J45.909 Unspecified asthma, uncomplicated; G43.909 Migraine, unspecified, not intractable, without status migrainosus; Z91.040 Latex allergy status; Z91.018 Allergy to other foods; X50.9XXA Other and unspecified overexertion or strenuous movements or postures, initial encounter; Y93.89 Activity, other specified; Y92.89 Other specified places as the place of occurrence of the external cause; Y99.8 Other external cause status
CPT/HCPCS: 73610; 99283